=== PATIENT | female | born 1995 | race Caucasian/White ===

== ENCOUNTER 2023-04-05 17:34 | Emergency (ER) | payer OTHER ==
[~2023-04-05] VITALS: Ht 167.6 cm; Wt 78.5 kg
[2023-04-05 18:03] VITALS: BP 145/94; PULSE 125; RESP 20; TEMP 98.8; O2SAT 99
== END 2023-04-05 18:08 | disposition left against medical advice (07) ==
LOC: MED 17:34
DX: R53.1 Weakness (principal); Z53.21 Procedure and treatment not carried out due to patient leaving prior to being seen by health care provider
CPT/HCPCS: 99281